=== PATIENT | male | born 1980 | race Caucasian/White ===

== ENCOUNTER 2023-12-31 22:51 | Emergency (ER) | payer MEDICAID, OTHER ==
[~2023-12-31] VITALS: Ht 185.4 cm; Wt 86.1 kg
[2023-12-31 23:00] VITALS: BP 128/72; PULSE 89; RESP 18; TEMP 99.7; O2SAT 97
[2024-01-01] MEDS ORDERED: ACET500T58 PO (01:50)
[2024-01-01] MEDS ORDERED: IBUP-1455 PO (01:50)
[2024-01-01] MEDS ORDERED: AUG875T PO (01:50)
[2024-01-01] MEDS: LIDOCAINE 1% HCL (LOCAL ANESTH.) INJ 20ML MDV ONE (02:02)
[2024-01-01] MEDS: AMOXICILLIN/CLAVUL 875 MG TAB PO ONE (02:38)
[2024-01-01] MEDS: LIDOCAINE 1% HCL (LOCAL ANESTH.) INJ 20ML MDV IJ ONE (02:44)
[2024-01-10] MEDS ORDERED: DOXY1CAP57 PO (16:18)
== END 2024-01-01 02:20 | disposition home or self-care (01) ==
LOC: ER 22:51
DX: S61.412A Laceration without foreign body of left hand, initial encounter (principal); S61.411A Laceration without foreign body of right hand, initial encounter; W54.0XXA Bitten by dog, initial encounter; Y93.89 Activity, other specified; Y92.009 Unspecified place in unspecified non-institutional (private) residence as the place of occurrence of the external cause; Y99.8 Other external cause status
CPT/HCPCS: 12002; 99283; J2001

== ENCOUNTER 2024-01-07 16:45 | Emergency (ER) | payer MEDICAID ==
[~2024-01-07] VITALS: Ht 185.4 cm; Wt 84.6 kg
[~2024-01-07 16:45] MED LIST: ACET500T58 PO; AUG875T PO; IBUP-1455 PO
[2024-01-07 17:01] VITALS: BP 135/92; RESP 18; O2SAT 96
[2024-01-07] MEDS: ACETAMINOPHEN 325 MG TAB PO ONE (18:00)
[2024-01-07] MEDS: SODIUM CHLORIDE 0.9% 1,000 ML IV ONE (18:00)
[2024-01-07] MEDS: IBUPROFEN 800 MG TAB PO ONE (18:00)
[2024-01-07 18:09] LABS: Basophils # (auto) 0.1 10 ^3/uL (0-0.2); Basophils % (auto) 0.8 % (0.0-2.0); Eosinophils # (auto) 0.4 10 ^3/uL (0-0.8); Eosinophils % (auto) 3.2 % (0.0-7.0); Hematocrit 42.8 % (41.0-53.0); Hemoglobin 15.1 g/dL (13.5-17.5); Lymphocytes % (auto) 23.7 % (10.0-50.0); Mean Corpuscular Hemoglobin 33.1 pg (28.0-32.0); Mean Corpuscular Hgb Conc. 35.2 g/dL (32.0-36.0); Monocytes # (auto) 1.2 10 ^3/uL (0-1.3); Monocytes % (auto) 9.4 % (0.0-12.0); Neutrophils # (auto) 7.9 10 ^3/uL (1.6-8.6); Neutrophils % (auto) 62.9 % (37.0-80.0); Nucleated Red Blood Cells % 0.1 %; Red Blood Cells 4.55 10^6/uL (4.5-5.90); Red Cell Distribution Width 12.9 % (11.8-14.3); White Blood Cell 12.5 10^3/uL (4.4-10.8)
[2024-01-07 18:29] LABS: INR 1.05 (0.9-1.15); Partial Thromboplastin Time 26.5 SEC (24.5-34.5); Prothrombin Time 11.1 sec (9.3-11.8)
[2024-01-07 18:31] LABS: Alanine Aminotransferase 23 U/L (7-40); Albumin 4.5 g/dL (3.2-4.8); Alkaline Phosphatase 103 U/L (46-116); Anion Gap 7 (5-15); Aspartate Aminotransferase 14 U/L (13-40); Bilirubin, Total 0.6 mg/dL (0.2-1.0); Blood Urea Nitrogen 11 mg/dL (9-23); Calcium 9.6 mg/dL (8.5-10.1); Carbon Dioxide 28 mmol/L (20-30); Chloride 102 mmol/L (98-107); Glucose 100 mg/dL (74-106); Magnesium 2.1 mg/dL (1.6-2.6); Sodium 137 mmol/L (136-145)
[2024-01-07 18:32] LABS: Total Protein 7.1 g/dL (5.7-8.2)
[2024-01-07 18:44] VITALS: PULSE 64
[2024-01-07 18:52] LABS: Urine Bacteria None Seen /hpf (None Seen)
[2024-01-07 19:18] LABS: Urine Blood Negative /uL (Negative); Urine Clarity Clear (Clear); Urine Color Yellow (Yellow); Urine Mucus FEW (None Seen); Urine Protein, UAD TRACE (Negative); Urine Specific Gravity 1.016 (1.001-1.035); Urine Urobilinogen Normal (Negative); Urine WBC 1 /hpf (0 - 3); Urine pH 6.5 (5.0-9.0)
[2024-01-07 19:44] LABS: Amphetamine Screen, Urine Neg (NEGATIVE); Benzodiazephine Screen, Urine Neg (NEGATIVE)
[2024-01-07 19:45] LABS: Barbiturate Scree,Urine Neg (NEGATIVE); Cannabinoid Screen, Urine Pos (NEGATIVE); Cocaine Screen, Urine Neg (NEGATIVE); Opiate Scree,Urine Neg (NEGATIVE); Phencyclidine Screen, Urine Neg (NEGATIVE)
[2024-01-07] MEDS ORDERED: ZOFR4T PO (20:23)
[2024-01-07] MEDS ORDERED: METR-344 PO (20:23)
[2024-01-07] MEDS ORDERED: DOXY1CAP57 PO (20:23)
[2024-01-10] MEDS ORDERED: DOXY1CAP57 PO (16:18)
== END 2024-01-07 21:03 | disposition home or self-care (01) ==
LOC: ER 16:45
DX: S61.452A Open bite of left hand, initial encounter (principal); S61.451A Open bite of right hand, initial encounter; R11.2 Nausea with vomiting, unspecified; R50.9 Fever, unspecified; Z79.899 Other long term (current) drug therapy; Z79.01 Long term (current) use of anticoagulants; W54.0XXA Bitten by dog, initial encounter; Y93.89 Activity, other specified; Y92.89 Other specified places as the place of occurrence of the external cause; Y99.8 Other external cause status
CPT/HCPCS: 36415; 80053; 80307; 81001; 83605; 83735; 84484; 85025; 85610; 85730; 87040; 93005